=== PATIENT | male | born 1995 | race African-American/Black ===

== ENCOUNTER 2016-10-07 15:28 | Emergency (ER) | payer OTHER ==
[2016-10-07 15:33] VITALS: BP 137/71; PULSE 77; RESP 18; TEMP 98.2; O2SAT 99
[2016-10-07] MEDS ORDERED: PROPARACAINE 0.5% 15 ML OPHT DROP OP ONE (15:33)
[2016-10-07] MEDS ORDERED: FLUORESCEIN SODIUM 1 MG STRIP OP ONE (15:33)
--- NOTE | 2016-10-07 15:35 | EDPHY ---
H & P Time Seen by Provider: 10/07/16 15:31 HPI/ROS: CHIEF COMPLAINT: left Eye pain HISTORY OF PRESENT ILLNESS: 21-year-old male with no corrective lens use history [facility] stating that 3 days ago was playing basketball when the basketball grazed his left eye. He fell no immediate pain however several hours later complained of eye pain which continues. His friend at the [facility] gave him unknown eyedrops and his ocular pain continues. He denies: High speed projectiles, direct trauma such as elbow or head injury to the eye, visual acuity changes, pain with extraocular movements PHYSICAL EXAM (Prior to examination, patient consented to physical exam, hands were washed and my usual and customary physical exam procedures followed) 1) GENERAL: Well-developed, well-nourished, alert and oriented. Appears to be in no acute distress. 2) HEAD: Normocephalic 3) ENT: nasopharynx clear no rhinorrhea 4) LUNGS: Breathing comfortably. 5)OCULAR EXAM: Visual Acuity: noted from Nurse's notes. Pupils:equal round and reactive to light EOMI Lids: no edema or swelling, upper and lower lids were everted and no foreign bodies were visualized, no areas of increased fluorescein uptake. Skin: no proptosis, no periorbital erythema or swelling, no vesicles, no pain with extraocular movements. No crepitus Conjunctivae: Mild injection to left eye , no discharge, negative Courtney test. Cornea: exam with fluorescein shows an area of increased uptake at the 1 o' clock position consistent with corneal abrasion Anterior chamber:normal, no hyphema or hypopyon tonometry performed on patient is 13 Smoking Status: Never smoked Constitutional: Initial Vital Signs Temperature (C) 36.8 C 10/07/16 15:29 Heart Rate 77 10/07/16 15:29 Respiratory Rate 18 10/07/16 15:29 Blood Pressure 137/71 H 10/07/16 15:29 O2 Sat (%) 99 10/07/16 15:29 O2 Delivery Mode Room Air Allergies/Adverse Reactions: No Known Allergies Allergy (Unverified 10/07/16 15:29) Home Medications: Medication Instructions Recorded NK [No Known Home Meds] 10/07/16 MDM/Departure - MDM Medications Given: Discontinued Medications Fluorescein Sodium ([id number]) 1 mg OP EDNOW ONE Stop: 10/07/16 15:34 Last Admin: 10/07/16 15:41 Dose: 1 mg Proparacaine HCl (Alcaine 0.5%) 1 drops OP EDNOW ONE Stop: 10/07/16 15:34 Last Admin: 10/07/16 15:41 Dose: 1 btl - Depart Disposition: Home, Routine, Self-Care Clinical Impression: Abrasion of cornea, left Qualifiers: Encounter type: initial encounter Qualified Code(s): S05.02XA - Injury of conjunctiva and corneal abrasion without foreign body, left eye, initial encounter Condition: Good Instructions: Corneal Abrasion (ED), Ofloxacin (Into the eye) Additional Instructions: Return to the emergency department if you developed change in your vision, worsening eye pain or any other symptoms that concern you Referrals: Norberto Kowalski MD [Medical Doctor] - 1-2 days without fail (Dr. Kowalski is an office assistant)
[2016-10-07] MEDS ORDERED: OFLOXACIN 0.3% SOLN PREPACK OPHT.BTL TAKEHOME ONE (15:59)
== END 2016-10-07 16:00 | disposition home or self-care (01) ==
DX: S05.02XA Injury of conjunctiva and corneal abrasion without foreign body, left eye, initial encounter (principal); W19.XXXA Unspecified fall, initial encounter; Y99.8 Other external cause status; Y93.67 Activity, basketball